=== PATIENT | male | born 1945 | race African-American/Black ===

== ENCOUNTER 2019-01-23 22:13 | Emergency (ER) | payer MEDICARE ==
[~2019-01-23] VITALS: Ht 175.3 cm; Wt 78.0 kg
[2019-01-23 23:34] VITALS: BP 164/46
== END 2019-01-23 23:48 | disposition home or self-care (01) ==
LOC: ER 22:13
DX: Z76.0 Encounter for issue of repeat prescription (principal); E11.9 Type 2 diabetes mellitus without complications; I10 Essential (primary) hypertension; Z79.4 Long term (current) use of insulin
CPT/HCPCS: 82962; 99283